=== PATIENT | female | born 1990 | race Caucasian/White ===

== ENCOUNTER 2018-06-28 16:51 | Emergency (ER) | payer MEDICAID, SELFPAY ==
[2018-06-28 16:52] VITALS: BP 135/84; PULSE 75; RESP 16; TEMP 35.9; O2SAT 100; BMI 26.1
--- NOTE | 2018-06-28 17:46 | ED.VISSUMM ---
- ER Visit Summary Date of Service: 06/28/18 Chief Complaint: Heroin detox History of Present Illness: The patient is a 28 F who is detoxing from heroin. She was on Suboxone but ran out. She was kicked out of her program in [place] because she missed appointments. She used heroin yesterday. She is having sweats, chills, nausea, myalgias, yawning. No suicidal thoughts. No other complaints. Physical Examination: Afebrile and vital signs unremarkable. Alert and orient. No acute distress. Heart regular rate and rhythm. Lungs clear. Abdomen soft. Skin appears normal. Test Results: CINA is 11. Emergency Department Course and Treatment: I spoke with the hospitalist reviewed the admission criteria. The patient does not meet criteria for admission. She will be treated with a course of Motrin and Zofran. Follow-up as an outpatient. Treatment Plan: As above Disposition: Discharge Impression: 1. Opioid withdrawal This note was generated with [employer] dictation software. It may contain incorrect words, spelling, and punctuation that were not noted in review of the chart prior to signing ED Disposition - Plan for ED Patient: Chief Complaint: Substance Abuse Referrals: NOT,DEFINED [NON-STAFF] -
--- NOTE | 2018-06-28 18:20 | ED.DEP ---
ED Disposition - Plan for ED Patient: Chief Complaint: Substance Abuse Instructions: ED Narcotic Abuse Prescriptions: Ondansetron [Zofran Odt] 4 mg PO Q8H PRN PRN #10 tab PRN Reason: Nausea Ibuprofen [Motrin] 800 mg PO TID PRN PRN #20 tab PRN Reason: Pain
[2018-06-28 18:30] VITALS: PULSE 70; RESP 18; O2SAT 98
--- NOTE | 2018-06-28 18:33 | ED.RN ---
PT IS HOMELESS AND WAS BROUGHT IN [facility]. [facility] PD TOLD HER THAT SHE COULD BE ADMITTED HERE FOR HEROIN DETOX. PT NOT IN ACTIVE WITHDRAWL. PT DOES NOT MEET CRITERIA FOR NEW VISION. PT EXPRESSES THAT SHE AND FRIEND HAVE NO WAY BACK TO GET BACK TO [place], NO MONEY, NO HOME. PT GIVEN PHONE NUMBER AND ADDRESS TO [employer] IN [place]. THIS RN OFFERED TO CALL [employer] FOR THEM, PT DENIED. PT OFFERED FOOD, PT DENIED. PT AND FRIEND SELF AMBULATED AFTER DISCHARGE FROM ED.
== END 2018-06-28 18:32 | disposition home or self-care (01) ==
PROVIDERS: Emergency Provider Emergency Medicine
DX: F11.23 Opioid dependence with withdrawal (principal)
CPT/HCPCS: 99282